=== PATIENT | female | born 1975 | race Two or more races ===

== ENCOUNTER 2016-08-22 15:35 | Emergency (ER) | payer OTHER ==
[2016-08-22 16:30] VITALS: BP 146/83; PULSE 80; RESP 14; TEMP 99.5; O2SAT 96
--- NOTE | 2016-08-22 16:56 | UCPHY ---
H & P Patient Type: New HPI/ROS: CHIEF COMPLAINT: Fall, head injury, knee pain, back pain HISTORY OF PRESENT ILLNESS: patient was walking in a parking lot 6 days ago she tripped and fell. She said she landed on both knees with her hands out and struck her chin. She describes a "fraction of a 2nd" Loss of consciousness. She says she remembers everything during this. She now complains of a mild pain in the chain, pain to bilateral knees, pain across her back and shoulders. She has no dizziness, confusion, nausea or vomiting. Pain in the knees is mild to moderate. It is worse with palpation and ambulation. There is some associated bruising on the anterior knee. There is no midline or bony tenderness of the back, she has generalized tenderness of the trapezius and latissimus dorsi. Shoulders are "achy, "but no bony pain. Symptoms improved minimally with believes she has been taking [id number]. No other associated complaints or modifying factors. REVIEW OF SYSTEMS: Ten systems reviewed and are negative unless otherwise noted in the HPI EXAMINATION General Appearance: Alert, no distress Head: normocephalic, atraumatic , no raccoon eyes, no Lveine sign Eyes: Pupils equal and round, no conjunctival pallor or injection ENT, Mouth: Mucous membranes moist, no hemotympanum Neck: Normal inspection, supple, non-tender Respiratory: Lungs are clear to auscultation Cardiovascular: Regular rate and rhythm Gastrointestinal: Abdomen is soft and nontender Back: no bony tenderness. There is tenderness of the trapezius and latissimus dorsi bilaterally. Mild muscle spasm noted. Neurological: A&O, steady gait , cranial nerves 2-12 grossly intact. Strength is 5/5 bilaterally. Sensation intact bilaterally. No focal deficits Skin: Warm and dry, no rash Extremities: no pedal edema. There is bilateral tenderness anterior tibial. There is no crepitus. No deformity. No laxity. Negative drawer test. Range of motion is fully intact but painful. Psychiatric: Mood and affect normal Differential Diagnoses: 1. Knee contusions 2. patellar fracture 3. muscle spasm 4. closed head injury MDM: mechanical fall nearly 1 week ago with subjective loss of consciousness. She has no lingering concussion related complaints. Primarily concerned about her knee pain at this time. This is bilateral and unchanged since last week. Minimal shoulder and back pain that appears to be soft tissue by examination and history. Based on history examination I do not feel she needs a CT scan of the head at this time as there no focal deficits with a completely normal neuro exam. X-rays of both knees are pending at this time. Re-evaluation 17:40 X-rays read as normal without any acute fracture, dislocation or effusion. Discharged home with symptomatic medications as discussed as well as prescriptions as documented. Follow up with primary care physician for any worsening symptoms. Recommend further imaging if she does improve and another 1 -2 weeks. Patient and significant other at bedside are comfortable with this plan. This patient was independently evaluated without the aide of supervising physician. Smoking Status: Former smoker Constitutional: Initial Vital Signs Temperature (C) 99.5 F 08/22/16 16:20 Heart Rate 80 08/22/16 16:20 Respiratory Rate 14 08/22/16 16:20 Blood Pressure 146/83 H 08/22/16 16:20 O2 Sat (%) 96 08/22/16 16:20 O2 Delivery Mode Room Air Allergies/Adverse Reactions: Penicillins Allergy (Verified 08/22/16 16:19) eggs Allergy (Uncoded 08/22/16 16:19) Home Medications: Medication Instructions Recorded Cyclobenzaprine [Flexeril 10 MG 10 mg PO TID PRN #15 tab 08/22/16 (*)] Depo-Provera 08/22/16 PRILOSEC 08/22/16 Voltaren Gel (*) 08/22/16 Departure - Departure Disposition: Home, Routine, Self-Care Clinical Impression: Blunt trauma, Closed head injury with brief loss of consciousness Knee contusion Qualifiers: Encounter type: initial encounter Laterality: unspecified laterality Qualifier Code: (S80.00XA) Contusion of unspecified knee, initial encounter Condition: Good Instructions: Knee Pain (ED), Head Injury (ED), Muscle Spasm (ED) Referrals: NONE *PRIMARY CARE P,. [Primary Care Provider] - As per Instructions Prescriptions: Cyclobenzaprine [Flexeril 10 MG (*)] 10 mg PO TID PRN #15 tab PRN Reason: Spasms - PQRS PQRS Measurement: Not applicable
--- NOTE | 2016-08-22 17:19 | DX ---
Right Knee , 3 views History: Pain post trauma. Fall. Findings: No fracture, effusion or dislocation is identified. Impression: Nothing acute identified.
--- NOTE | 2016-08-22 17:23 | DX ---
Left Knee, Four Views August 22, 2016 Indication: Fall. Technique: AP, obliques and lateral views Findings: The normally mineralized bones are anatomically aligned. No fracture, joint space abnormali ty, or underlying bony lesion. No effusion. Impression: Negative. No fracture or effusion.
== END 2016-08-22 20:03 | disposition home or self-care (01) ==
LOC: CED 15:35
DX: S09.90XA Unspecified injury of head, initial encounter (principal); M25.561 Pain in right knee; M25.562 Pain in left knee; M54.9 Dorsalgia, unspecified; W19.XXXA Unspecified fall, initial encounter
CPT/HCPCS: 73564-PO; 99203-PO; G0463-PO